=== PATIENT | male | born 1975 | race Caucasian/White ===

== ENCOUNTER → 2016-11-09 | Day surgery (SDC) ==
[~2016-11-09] MED LIST: NS ONE; [UNRECOGNIZED DRUG - OTHER] ONE
[2016-11-09 10:27] VITALS: BP 139/87
--- NOTE | 2016-11-09 19:55 | OPERATIVE NOTE ---
PROCEDURE DATE: 11/09/2016 PREOPERATIVE DIAGNOSIS: Malignancy of the urinary bladder multiple overlapping areas in the right posterior bladder wall, right bladder wall, carcinoma in situ. POSTOPERATIVE DIAGNOSIS: Malignancy of the urinary bladder multiple overlapping areas in the right posterior bladder wall, right bladder wall, carcinoma in situ. SURGEONS: Rubin Olson DO PROCEDURE: Instillation of BCG. COMPLICATIONS: None. DRAINS: None. SPECIMEN: Urinalysis. DISPOSITION: Stable. FINDINGS: As described upon body of the dictation. Symptoms of the patient since last instillation were some periodic dysuria appropriate to immune response of BCG. DESCRIPTION OF PROCEDURE: The patient was seen in the outpatient surgical suite. The OPS staff had placed a catheter in preparation for the intervention. Having received 650 mL of BCG 1 intravesical dose from the pharmacy, under proper preparation and precaution biohazard materials in hand the Flores bag was discarded and the Flores catheter's prior place was instilled with 1 intravesical dose of BCG and successfully so followed by about 2-3 mL of air to clear the catheter. The balloon was deflated. Catheter was removed and discarded in the biohazard container as were the gowns, masks, etienne, and syringe materials also discarded in the biohazard container which was subsequently sealed. Patient change positions every 15 minutes for 1 hour including the back, front, right side and left side 15 minutes each upon which he voided in the toilet and the toilet was cleansed with 1/2 cup of Clorox and he is to do that every void throughout the rest of today. I look forward to seeing the patient back in 1 week for his next instillation. He did very well.
== END | disposition home or self-care (01) ==
LOC: INF 09:25
PROVIDERS: ATTEND Urology
DX: Z51.12 Encounter for antineoplastic immunotherapy (principal); C67.8 Malignant neoplasm of overlapping sites of bladder; R30.0 Dysuria
CPT/HCPCS: J9031